=== PATIENT | male | born 1965 | race Caucasian/White ===

== ENCOUNTER 2018-03-16 04:11 | Inpatient (IN) | payer OTHER ==
[2018-03-16 04:26] LABS: Allen Test ACCEPTAB; Arterial Base Excess -10.5 mmol/L (-3.0-3); Arterial Blood Gas Oxygen Sat 98.8 mmHG (95.0-98.0); Arterial COHb 1.3 % (0.0-3.0); Arterial Fraction of Oxyhgb 97.2 % (93.0-99.0); Arterial HCO3 15.2 mmol/L (22.0-26.0); Arterial MetHb 0.3 % (0.0-1.5); Arterial pCO2 32.4 mmhg (35-45); MODE MASK - NRB; Site Left Radial
[2018-03-16 05:01] LABS: ADD MAN DIFF? NO
[2018-03-16 05:19] LABS: WHITE BLOOD COUNT 8.2 10^3/ul (4.8-10.8)
[2018-03-16 05:19] LABS: ABNORMAL IP MESSAGE 1; BASOPHILS % 0.1 % (0.0-2.0); EOSINOPHILS % 0.1 % (0.0-7.0); HEMATOCRIT 20.1 % (42.0-52.0); LYMPHOCYTES # 0.6 10^3/ul (0.8-2.9); LYMPHOCYTES % 7.2 % (15.0-51.0); MEAN CORPUSCULAR HGB CONC 29.9 g/dl (32.0-37.0); MEAN CORPUSCULAR VOLUME 97.1 fl (82.0-101.0); MEAN PLATELET VOLUME 10.2 fl (7.4-10.4); MONOCYTE # 0.3 10^3/ul (0.3-0.9); MONOCYTES % 3.3 % (0.0-11.0); NEUTROPHIL # 7.2 10^3/ul (1.6-7.5); NUCLEATED RED BLOOD CELLS% 0.4 /100WBC (0.0-0.0); PLATELET COUNT 140 10^3/UL (140-415); POSITIVE DIFF @See below; RED BLOOD COUNT 2.07 10^6/ul (4.70-6.10)
[2018-03-16 05:27] LABS: INR 1.46; PT RATIO 1.4
[2018-03-16 05:28] LABS: PARTIAL THROMBOPLASTIN TIME 31.5 Sec (23.0-35.0)
[2018-03-16 05:35] LABS: ALANINE AMINOTRANSFERASE 89 IU/L (13-69); ALBUMIN 3.3 g/dl (3.3-4.9); ALBUMIN/GLOBULIN RATIO 1.32; ALKALINE PHOSPHATASE 78 IU/L (42-121); ANION GAP 21 (5-13); ASPARTATE AMINO TRANSFERASE 121 IU/L (15-46); BILIRUBIN,INDIRECT 0.2 mg/dl (0-1.1); BILIRUBIN,TOTAL 0.2 mg/dl (0.2-1.3); BLOOD UREA NITROGEN 54 mg/dl (7-20); CARBON DIOXIDE 19 mmol/L (21-31); CHLORIDE 95 mmol/L (97-110); Estimated GFR 31 mL/min (>60); GLUCOSE 223 mg/dl (70-220); SODIUM 135 mmol/L (135-144); TOTAL PROTEIN 5.8 g/dl (6.1-8.1)
[2018-03-16 05:44] LABS: PATH REVIEW? NO
[2018-03-16 05:46] LABS: TROPONIN-I 0.071 ng/ml (0.000-0.120)
[2018-03-16] MEDS: SOD CHLORIDE 0.9% 250 ML IV (06:02)
[2018-03-16 06:20] LABS: LACTIC ACID 9.5 mmol/L (0.5-2.0)
[2018-03-16] MEDS ORDERED: ACETAMINOPHEN 650MG/20.3ML CUP PO (06:30)
[2018-03-16] MEDS ORDERED: ONDANSETRON 4 MG INJ IV (06:30)
[2018-03-16] MEDS ORDERED: VANCOMYCIN IV PER PHARMACY XX (07:00)
[2018-03-16] MEDS: ALBUTEROL 0.5% (NEB) 2.5 MG/0.5 ML AMP INH (07:09)
[2018-03-16] MEDS: NA BICARBONATE 8.4% 50 ML SYG IV (07:20)
[2018-03-16] MEDS: SOD CHLORIDE 0.9% 500 ML IV ×2 (07:29→09:39)
[2018-03-16] MEDS: INSULIN LISPRO 100 UNIT/ML VIAL SC (07:30)
[2018-03-16 07:46] LABS: LACTIC ACID 4.9 mmol/L (0.5-2.0)
[2018-03-16] MEDS: LIDOCAINE 1% (MPF) 5 ML VIAL SC (08:00)
[2018-03-16] MEDS: VANCOMYCIN 1.5 GM in SOD CHLORIDE 0.9% 250 ML IVPB (08:00)
[2018-03-16 08:25] LABS: HAAIG REFLEX REFLEX FILED
[2018-03-16 08:30] LABS: RETICULOCYTE RBC 2.08
[2018-03-16 08:30] LABS: RETICULOCYTE COUNT # 0.104 X10^6 (0.020-0.110)
[2018-03-16 08:50] LABS: LACTATE DEHYDROGENASE 1635 IU/L (313-618)
[2018-03-16 08:50] LABS: CREATINE KINASE 26 IU/L (23-200)
[2018-03-16 09:00] LABS: B-TYPE NATRIURETIC PEPTIDE 5900 PG/ML (0-125)
[2018-03-16 09:04] LABS: CK INDEX 6.6; CK-MB 1.71 ng/ml (0.0-2.4); TROPONIN-I 0.112 ng/ml (0.000-0.120)
[2018-03-16 09:11] LABS: ANISOCYTOSIS 1+ (0-0); BAND NEUTROPHILS #M 0.9 10^3/ul (0.0-0.6); BAND NEUTROPHILS % (M) 12 % (0-4); GIANT THROMBO% (M) 1 % (0-0); OVALOCYTES 1+ (0-0); PLATELET ESTIMATE NORMAL; POLYCHROMASIA 3+ (0-0); SEG NEUT #M 6.5 10^3/ul (1.6-7.5); SEGMENTED NEUTROPHILS (M) % 78 % (39-77)
[2018-03-16 09:25] LABS: HEPATITIS B SURFACE ANTIGEN NEGATIVE (NEGATIVE)
[2018-03-16 09:38] LABS: ANION GAP 13 (5-13); BLOOD UREA NITROGEN 57 mg/dl (7-20); CALCIUM 8.1 mg/dl (8.4-10.2); CARBON DIOXIDE 24 mmol/L (21-31); CHLORIDE 101 mmol/L (97-110); Estimated GFR 42 mL/min (>60); GLUCOSE 141 mg/dl (70-220); POTASSIUM 4.7 mmol/L (3.5-5.1); SODIUM 138 mmol/L (135-144)
[2018-03-16] MEDS: PIPER-TAZO 3.375 GM IV (PMX) 100 ML IVPB ×3 (09:39→22:07)
[2018-03-16 09:40] LABS: HEPATITIS B SURFACE ANTIBODY NEGATIVE (NEGATIVE)
[2018-03-16 09:43] LABS: HEPATITIS B CORE ANTIBODY NEGATIVE (NEGATIVE); HEPATITIS C VIRAL ANTIBODY NEGATIVE (NEGATIVE)
[2018-03-16] MEDS: IPRATROPIUM (NEB) 0.5 MG/2.5 ML AMP NEB ×4 (09:44→22:18)
[2018-03-16] MEDS: SOD CHLORIDE 0.9% 1,000 ML IV (10:00)
[2018-03-16 11:13] LABS: LYMPHOCYTES #M 0.4 10^3/ul (0.8-2.9); LYMPHOCYTES % (M) 5 % (15-51); MICROCYTOSIS 1+ (0-0); MONOCYTE #M 0.2 10^3/ul (0.3-0.9); MONOCYTES % (M) 3 % (0-11); POIKILOCYTOSIS 2+ (0-0); REACTIVE LYMPHOCYTES #M 0.1 10^3/ul (0.0-0.0); REACTIVE LYMPHOCYTES% (M) 2 % (0-0)
[2018-03-16 12:00] LABS: AADO2 Arterial 90.4 mmHg (7.0-24.0); Allen Test ACCEPTAB; Arterial Base Excess -0.2 mmol/L (-3.0-3); Arterial COHb 0.8 % (0.0-3.0); Arterial Fraction of Oxyhgb 94.1 % (93.0-99.0); Arterial MetHb 0.1 % (0.0-1.5); Arterial pCO2 36.2 mmhg (35-45); MODE NASAL CANNULA; Site Right Radial
[2018-03-16 13:00] LABS: ANION GAP 11 (5-13); BLOOD UREA NITROGEN 54 mg/dl (7-20); CARBON DIOXIDE 26 mmol/L (21-31); CHLORIDE 101 mmol/L (97-110); CREATININE 1.56 mg/dl (0.61-1.24); Estimated GFR 47 mL/min (>60); GLUCOSE 121 mg/dl (70-220); POTASSIUM 4.6 mmol/L (3.5-5.1); SODIUM 138 mmol/L (135-144)
[2018-03-16 13:02] LABS: LACTIC ACID 2.2 mmol/L (0.5-2.0)
[2018-03-16 14:05] LABS: CREATINE KINASE 33 IU/L (23-200)
[2018-03-16 14:17] LABS: CK INDEX 5.2; CK-MB 1.72 ng/ml (0.0-2.4); TROPONIN-I 0.091 ng/ml (0.000-0.120)
[2018-03-16] MEDS ORDERED: METHADONE 5 MG TAB PO (18:00)
[2018-03-16] MEDS ORDERED: HYDROCODONE/APAP (5/325) TAB PO (18:00)
[2018-03-16 20:55] LABS: CREATINE KINASE 42 IU/L (23-200)
[2018-03-16 21:08] LABS: CK INDEX 4.6; CK-MB 1.93 ng/ml (0.0-2.4); TROPONIN-I 0.064 ng/ml (0.000-0.120)
[2018-03-16] MEDS: MEMANTINE 5 MG TAB PO (22:07)
[2018-03-16] MEDS: LORAZEPAM 1 MG TAB PO (23:00)
[2018-03-16 23:52] LABS: ADD MAN DIFF? NO
[2018-03-16 23:54] LABS: WHITE BLOOD COUNT 5.6 10^3/ul (4.8-10.8)
[2018-03-16 23:54] LABS: ABNORMAL IP MESSAGE 1; EOSINOPHILS % 0.2 % (0.0-7.0); HEMOGLOBIN 7.7 g/dl (14.0-18.0); LYMPHOCYTES # 0.2 10^3/ul (0.8-2.9); MEAN CORPUSCULAR HEMOGLOBIN 29.1 pg (29.0-33.0); MEAN CORPUSCULAR HGB CONC 32.1 g/dl (32.0-37.0); MEAN CORPUSCULAR VOLUME 90.6 fl (82.0-101.0); MEAN PLATELET VOLUME 9.6 fl (7.4-10.4); MONOCYTE # 0.2 10^3/ul (0.3-0.9); MONOCYTES % 3.6 % (0.0-11.0); NEUTROPHIL # 5.1 10^3/ul (1.6-7.5); NEUTROPHILS % 91.7 % (39.0-77.0); NUCLEATED RED BLOOD CELLS # 0.1 10^3/ul (0.0-0.0); NUCLEATED RED BLOOD CELLS% 0.9 /100WBC (0.0-0.0); PLATELET COUNT 94 10^3/UL (140-415); POSITIVE DIFF @See below; RED BLOOD COUNT 2.65 10^6/ul (4.70-6.10); RED CELL DISTRIBUTION WIDTH 19.1 % (11.5-14.5)
[2018-03-17] MEDS: SOD CHLORIDE 0.9% 1,000 ML IV (00:54)
[2018-03-17] MEDS: IPRATROPIUM (NEB) 0.5 MG/2.5 ML AMP NEB ×3 (01:00→16:45)
[2018-03-17] MEDS: METHADONE 5 MG TAB PO ×2 (01:03→10:20)
[2018-03-17 05:48] LABS: ADD MAN DIFF? NO
[2018-03-17 05:59] LABS: WHITE BLOOD COUNT 5.3 10^3/ul (4.8-10.8)
[2018-03-17 05:59] LABS: ABNORMAL IP MESSAGE 1; EOSINOPHILS % 0.2 % (0.0-7.0); HEMATOCRIT 23.5 % (42.0-52.0); HEMOGLOBIN 7.5 g/dl (14.0-18.0); LYMPHOCYTES # 0.2 10^3/ul (0.8-2.9); LYMPHOCYTES % 3.7 % (15.0-51.0); MEAN CORPUSCULAR HEMOGLOBIN 29.2 pg (29.0-33.0); MEAN CORPUSCULAR HGB CONC 31.9 g/dl (32.0-37.0); MEAN CORPUSCULAR VOLUME 91.4 fl (82.0-101.0); MONOCYTE # 0.2 10^3/ul (0.3-0.9); MONOCYTES % 3.4 % (0.0-11.0); NEUTROPHIL # 4.9 10^3/ul (1.6-7.5); NEUTROPHILS % 92.1 % (39.0-77.0); NUCLEATED RED BLOOD CELLS # 0.1 10^3/ul (0.0-0.0); NUCLEATED RED BLOOD CELLS% 1.3 /100WBC (0.0-0.0); PLATELET COUNT 96 10^3/UL (140-415); POSITIVE DIFF @See below; RED BLOOD COUNT 2.57 10^6/ul (4.70-6.10); RED CELL DISTRIBUTION WIDTH 19.6 % (11.5-14.5)
[2018-03-17] MEDS: PANTOPRAZOLE 40 MG INJ IV (06:04)
[2018-03-17] MEDS: PIPER-TAZO 3.375 GM IV (PMX) 100 ML IVPB ×2 (06:04→13:19)
[2018-03-17 06:31] LABS: ANION GAP 8 (5-13); BLOOD UREA NITROGEN 36 mg/dl (7-20); CALCIUM 7.9 mg/dl (8.4-10.2); CARBON DIOXIDE 27 mmol/L (21-31); CHLORIDE 106 mmol/L (97-110); CREATININE 0.95 mg/dl (0.61-1.24); Estimated GFR > 60 mL/min (>60); GLUCOSE 110 mg/dl (70-220); MAGNESIUM 2.1 mg/dl (1.7-2.5); PHOSPHORUS 3.5 mg/dl (2.5-4.9); POTASSIUM 3.9 mmol/L (3.5-5.1); SODIUM 141 mmol/L (135-144)
[2018-03-17] MEDS ORDERED: SOD CHLORIDE 0.9% 250 ML IV* (08:21)
[2018-03-17] MEDS ORDERED: ENOXAPARIN 40 MG/0.4 ML SYG SC (09:00)
[2018-03-17] MEDS: MEMANTINE 5 MG TAB PO (09:16)
[2018-03-17] MEDS: VANCOMYCIN 1 GM 250 ML IVPB (09:16)
[2018-03-17 12:27] LABS: HAPTOGLOBIN 340 mg/dL (43-212)
[2018-03-17 13:35] LABS: IMMEDIATE SPIN CROSSMATCH 1 3
[2018-03-17] MEDS: LORAZEPAM 1 MG TAB PO (16:24)
[2018-03-17] MEDS ORDERED: VANCOMYCIN 1 GM 250 ML IVPB (21:00)
[2018-03-18] MEDS ORDERED: LEVOFLOXACIN 500 MG TAB PO (06:00)
== END 2018-03-17 16:40 | disposition short-term general hospital (02) | DRG 871 ==
LOC: E/R 04:11 → ICU 06:29
PROC: 30233N1 Transfusion of Nonautologous Red Blood Cells into Peripheral Vein, Percutaneous Approach (ICD-10-PCS; principal; 2018-03-16)
PROC: 5A09357 Assistance with Respiratory Ventilation, Less than 24 Consecutive Hours, Continuous Positive Airway Pressure (ICD-10-PCS; 2018-03-16)
PROC: 02HV33Z Insertion of Infusion Device into Superior Vena Cava, Percutaneous Approach (ICD-10-PCS; 2018-03-16)
DX: A41.9 Sepsis, unspecified organism (principal); J18.9 Pneumonia, unspecified organism; J96.00 Acute respiratory failure, unspecified whether with hypoxia or hypercapnia; R65.21 Severe sepsis with septic shock; N17.9 Acute kidney failure, unspecified; C78.7 Secondary malignant neoplasm of liver and intrahepatic bile duct; C79.31 Secondary malignant neoplasm of brain; C79.51 Secondary malignant neoplasm of bone; E87.2 Acidosis; J81.1 Chronic pulmonary edema; C78.89 Secondary malignant neoplasm of other digestive organs; C14.0 Malignant neoplasm of pharynx, unspecified; D63.0 Anemia in neoplastic disease; E87.5 Hyperkalemia; I51.7 Cardiomegaly; E86.0 Dehydration; E88.89 Other specified metabolic disorders; R63.4 Abnormal weight loss; Z68.21 Body mass index [BMI] 21.0-21.9, adult; Z79.899 Other long term (current) drug therapy; I27.20 Pulmonary hypertension, unspecified; R09.02 Hypoxemia
CPT/HCPCS: 36430; 36569; 36600; 70450; 71045; 71250; 74176; 76700; 76937; 80048; 80053; 82550; 82553; 82803; 82962; 83010; 83605; 83615; 83735; 83880; 84100; 84484; 85025; 85045; 85610; 85730; 86704; 86706; 86708; 86709; 86803; 86850; 86900; 86901; 86920; 87040; 87081; 87340; 93005; 93306; 93970; 94640; 94660; 94664